=== PATIENT | male | born 1985 | race Caucasian/White ===

== ENCOUNTER 2024-03-24 13:00 | Emergency (ER) | payer BC, OTHER ==
[~2024-03-24] VITALS: Ht 175.3 cm; Wt 86.2 kg
[2024-03-24 14:50] LABS: Trichomonas vaginalis (AMP) NOT DETECTED (NEGATIVE)
[2024-03-24 15:13] LABS: GC DNA AMPLIFICATION NEGATIVE (NEGATIVE)
[2024-03-24 17:10] VITALS: BP 142/100; TEMP 98.1; O2SAT 97
== END 2024-03-24 17:12 | disposition home or self-care (01) ==
LOC: M ED 13:00
DX: R30.0 Dysuria (principal); N20.0 Calculus of kidney